=== PATIENT | female | born 1970 | race Caucasian/White ===

== ENCOUNTER 2016-05-02 04:51 | Observation (INO) | payer OTHER ==
[~2016-05-02] VITALS: Ht 154.9 cm; Wt 74.8 kg
[~2016-05-02 04:51] MED LIST: BCP PO; LORATADINE10 MG PO
--- NOTE | 2016-05-02 06:23 | DIAGNOSTIC IMAGING REPORT ---
PROCEDURE: XR LUMBAR SPINE 2 OR 3 VIEWS INDICATION: TRAUMA/INJURY TECHNIQUE: Three views. COMPARISON: None. FINDINGS: There is moderate to severe disc space narrowing L5-S1 with moderate degenerate changes of the lower lumbar facet joints. Osseous structures and disc spaces are otherwise normal. No evidence of an acute process or fracture. IMPRESSION: 1. Moderate degenerative changes of the lower lumbar spine (L5-S1 level).
--- NOTE | 2016-05-02 06:56 | DIAGNOSTIC IMAGING REPORT ---
PROCEDURE: XR CHEST 2 VIEW INDICATION: CHEST PAIN TECHNIQUE: PA and lateral views. COMPARISON: None. FINDINGS: Lungs are clear. Heart and mediastinum are normal. Thorax is normal. IMPRESSION: 1. Negative chest. 2. Findings discussed with Dr. Laguna.
--- NOTE | 2016-05-02 06:59 | DIAGNOSTIC IMAGING REPORT ---
PROCEDURE: XR HIP 2VW W W/O AP PELVIS-LT INDICATION: TRAUMA/INJURY TECHNIQUE: AP view of the pelvis and hips with lateral view of the left hip. COMPARISON: None. FINDINGS: LEFT HIP: Osseous structures and joint spaces are normal. PELVIS: Osseous pelvis is normal. IMPRESSION: 1. Negative pelvis and left hip. 2. Findings discussed with Dr. Laguna.
--- NOTE | 2016-05-02 07:43 | ED ORDER SUMMARY ---
..... Patient: ALFONSO GUDINO OrderSheet [facility] VisitID: [id number] [address] [place] [address] 46y, F Registration Date/Time: 05/02/2016 ORDER SHEET Weight: 74.8 kg (stated) Allergies: No Known Drug Allergy GENERAL ORDERS: Hip 2V Right w AP Pelvis (slip and fall in shower) Urgent (04:54 05/02/2016 PHutchinson DO) (Ack 5:06 CHategekimana) (Cancelled: Other5:16 PHutchinson DO) Lumbar Spine 2 or 3V Urgent (04:59 05/02/2016 PHutchinson DO) (Ack 5:06 Raminegekimana) (5:16 JBullard R.N.) Hip 2V Left w AP Pelvis Urgent (05:16 05/02/2016 PHutchinson DO) (5:16 JBullard R.N.) Chest 2V (fall with posterior left lower rib tenderness) Urgent (06:21 05/02/2016 PHutchinson DO) (Ack 6:25 Tripekimana) (6:55 Yael) CBC w Diff Urgent (07:21 05/02/2016 PHutchinson DO) (Ack 7:32 LNations ER Tech1) (8:11 JSanders R.N.) BMP Urgent (07:21 05/02/2016 PHutchinson DO) (Ack 7:32 LNations ER Tech1) (8:11 JSanders R.N.) UA-Culture if indicated Urgent (07:21 05/02/2016 PHutchinson DO) (Ack 7:32 LNations ER Tech1) Urine Drug Screen Urgent (07:21 05/02/2016 PHutchinson DO) (Ack 7:40 LNations ER Tech1) Urine Urgent (07:22 05/02/2016 PHutchinson DO) (Ack 7:40 LNations ER Tech1) Call (Place call to): (Dr Soler) (07:39 05/02/2016 PHutchinson DO) (Ack 7:40 LNations ER Tech1) (7:40 LNations ER Tech1) MEDICATION ORDERS: Dilaud[facility] IM 1 mg (NOW) [facility]04[facility]59 [facility] (5:16 Marialuisa RibeiroNAmmy) Phenergan IM 25 mg (NOW) (04:59 05/02/2016 [facility]) (5:16 Marialuisa Odonnell.NAmmy) IV FLUIDS: Dilaudid IV 0.5 mg (may repeat x 1 prn pain) (07:20 05/02/2016 [facility]) (7:59 Cynthia R.N.) IV NS : initial bolus 1000 mL (1000 mL/hr), then 150 mL/hr (NOW) (08:00 05/02/2016 [facility]) (8:11 Cynthia R.N.) ORDER SHEET NOTES: [Electronically signed by Nilesh Laguna DO (09:45 05/02/2016)] [Electronically signed by Rhina Porter R.N. (12:00 05/02/2016)] [Electronically locked/signed by Rhina Porter R.N. (12:00 05/02/2016)]
--- NOTE | 2016-05-02 07:43 | ED ORDER SUMMARY ---
..... Patient: ALFONSO GUDINO OrderSheet [facility] VisitID: [id number] [address] [place] [address] 46y, F Registration Date/Time: 05/02/2016 ORDER SHEET Weight: 74.8 kg (stated) Allergies: No Known Drug Allergy GENERAL ORDERS: Hip 2V Right w AP Pelvis (slip and fall in shower) Urgent (04:54 05/02/2016 PHutchinson DO) (Ack 5:06 CHategekimana) (Cancelled: Other5:16 PHutchinson DO) Lumbar Spine 2 or 3V Urgent (04:59 05/02/2016 PHutchinson DO) (Ack 5:06 Raminegekimana) (5:16 JBullard R.N.) Hip 2V Left w AP Pelvis Urgent (05:16 05/02/2016 PHutchinson DO) (5:16 JBullard R.N.) Chest 2V (fall with posterior left lower rib tenderness) Urgent (06:21 05/02/2016 PHutchinson DO) (Ack 6:25 Tripekimana) (6:55 Yael) CBC w Diff Urgent (07:21 05/02/2016 PHutchinson DO) (Ack 7:32 LNations ER Tech1) (8:11 JSanders R.N.) BMP Urgent (07:21 05/02/2016 PHutchinson DO) (Ack 7:32 LNations ER Tech1) (8:11 JSanders R.N.) UA-Culture if indicated Urgent (07:21 05/02/2016 PHutchinson DO) (Ack 7:32 LNations ER Tech1) Urine Drug Screen Urgent (07:21 05/02/2016 PHutchinson DO) (Ack 7:40 LNations ER Tech1) Urine Urgent (07:22 05/02/2016 PHutchinson DO) (Ack 7:40 LNations ER Tech1) Call (Place call to): (Dr Soler) (07:39 05/02/2016 PHutchinson DO) (Ack 7:40 LNations ER Tech1) (7:40 LNations ER Tech1) MEDICATION ORDERS: Dilaud[facility] IM 1 mg (NOW) [facility]04[facility]59 [facility] (5:16 Marialuisa RibeiroNAmmy) Phenergan IM 25 mg (NOW) (04:59 05/02/2016 [facility]) (5:16 Marialuisa Odonnell.NAmmy) IV FLUIDS: Dilaudid IV 0.5 mg (may repeat x 1 prn pain) (07:20 05/02/2016 [facility]) (7:59 Cynthia R.N.) IV NS : initial bolus 1000 mL (1000 mL/hr), then 150 mL/hr (NOW) (08:00 05/02/2016 [facility]) (8:11 Cynthia R.N.) ORDER SHEET NOTES: [Electronically signed by Nilesh Laguna DO (09:45 05/02/2016)] [Electronically signed by Rhina Porter R.N. (12:00 05/02/2016)] [Electronically locked/signed by Rhina Porter R.N. (12:00 05/02/2016)]
--- NOTE | 2016-05-02 07:43 | ED CLINICAL REPORT ---
Clinical Report - Physicians/Mid Levels [facility] [address] [place] [address] 05/02/2016 4:52 Patient: ALFONSO GUDINO Time Seen: 04:54. Arrived- By ambulance. Historian- patient and EMS personnel. HISTORY OF PRESENT ILLNESS The patient also has injury to right lower extremity (hip). Chief Complaint: RIGHT HIP INJURY. The injury occurred just prior to arrival. Occurred at home. Fell while standing and landed on the ground; slipped (fell onto her left side - not directly onto her gluteal area). The patient complains of moderate pain. No blow to the head, neck pain, loss of consciousness or seizure. REVIEW OF SYSTEMS No numbness, hearing loss, headache, chest pain or weakness. No abdominal pain, nausea, difficulty breathing, bladder dysfunction or laceration. No fever or vomiting. All systems otherwise negative, except as recorded above. PAST HISTORY PROBLEMS: Hives. SURGERIES: Foot surgery. SOCIAL HISTORY Never smoker. Occasional alcohol use. No drug use. ADDITIONAL NOTES The nursing notes have been reviewed. PHYSICAL EXAM Vital Signs: 05/02/2016 05:01 BP: 129/87. HR: 90. RR: 16. O2 saturation: 99%. Temp: 98 F. Appearance: Alert. Oriented X3. Patient in moderate distress. Head: Head non-tender. No swelling of head. Eyes: Pupils equal, round and reactive to light. EOM intact. ENT: No dental injury. Pharynx normal. Neck: Painless ROM. Non-tender. CVS: Heart sounds normal. Pulses normal. Respiratory: Breath sounds normal. Chest nontender. Abdomen: No visible injury. Soft and nontender. Back: Moderate soft-tissue tenderness in the left lower lumbar area. Skin: Skin intact. Skin warm and dry. Normal skin color. Normal skin turgor. Extremities: Normal inspection. Pelvis stable. Pelvis: moderate tenderness located in the left iliac wing and ischium. Limited ROM left hip secondary to pain. Neurovascular intact distally. No swelling. No ecchymosis. Left hip. No tenderness. Neuro: Derrick Coma Scale: 15- eyes open spontaneously (4); best verbal response- oriented x 3 (5); best motor response- obeys commands (6). Oriented X 3. No motor deficit. No sensory deficit. LABS, X-RAYS, AND EKG LS-Spine X-rays: No fracture or subluxation. (IMPRESSION: 1. Moderate degenerative changes of the lower lumbar spine (L5-S1 level).). Views: AP and lateral. Technique: good. The X-rays were interpreted contemporaneously by me and discussed with the radiologist. Chest X-ray: No acute disease. Normal lung markings present. Normal heart size. Mediastinum normal. Great vessels normal. No infiltrate. Views: PA and lateral. Technique: good. The X-rays were interpreted contemporaneously by me and discussed with the radiologist. Rt Hip X-ray: No fracture. Normal alignment. No bony lesion, air in the soft tissue or foreign body. Soft tissues normal. Joint spaces normal. Views: 2 view hip series. Technique: good. The X-rays were interpreted contemporaneously by me. Laboratory Tests: CBC w Diff: (PATTY: 05/02/2016 07:55) ( MarketLivegRcvd 05/02/2016 08:04) Final results Test Result Flag Units (Reference) WHITE BLOOD COUNT 10.7 K/uL (4.5-11.5) RED BLOOD COUNT 4.29 M/uL (4.00-5.20) HEMOGLOBIN 13.6 gm/dL (12.0-16.0) HEMATOCRIT 40.7 % (36.0-46.0) MEAN CELL VOLUME 95 fL (80-100) MEAN CORPUSCULAR HGB 32 pg (26-34) MEAN CORPUSCULAR HGB CONC 33 g/dL (31-37) RED CELL DISTRIBUTION WIDTH 12.5 % (11.6-14.8) PLATELET COUNT 351 K/uL (150-400) NEUTROPHIL % 82.7 H % (50-75) LYMPH % 13.9 L % (25-40) MONO % 3.4 % (3-14) EOSINOPHIL % 0 % (0-4) BASOPHIL % 0 % (0-2) BMP: (PATTY: 05/02/2016 07:55) ( MsgRcvd 05/02/2016 08:28) Final results Test Result Flag Units (Reference) GLUCOSE 113 H mg/dL (70-110) BUN 8 mg/dL (7-18) CREATININE 0.7 mg/dL (0.6-1.3) Estimated GFR >60 mL/min Estimated GFR- >60 mL/min Note: Persistent reduction over 3 months in eGFR<60 mL/min/1.73 m2 defines CKD. Patients with eGFR values>=60 mL/min/1.73 m2 may also have CKD if evidence ofpersistent proteinuria. Additional information may be foundat www.kidney.org. SODIUM 138 mmol/L (136-145) POTASSIUM 4.0 mmol/L (3.5-5.1) CHLORIDE 103 mmol/L (98-107) CARBON DIOXIDE 23 mmol/L (21-32) CALCIUM 8.6 mg/dL (8.5-10.1) . Pulse Oximetry: 05/02/2016 05:01 O2 saturation: 99%. (FIO2 - room air). Interpretation: normal. PROGRESS AND PROCEDURES Course of Care: Dilaudid 1 mg with Phenergan 25 mg IM given. Dilaudid 0.5 mg IVP given. Patient is stable. Symptoms better. Pt states that she cannot sit up or walk. She will be admitted for symptom control and further work up as indicated. Discussed case with patient's primary care provider, (Karlene call returned 07:50). Reviewed test results. Agreed upon treatment plan. Health care provider will see patient in ED. Patient/family counseled. Observation orders written. Disposition: Observation in Acute Care. Condition: stable and improved. CLINICAL IMPRESSION Contusion to the lower back.No hematoma or skin abrasion. 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 No radiculopathy or neurological deficit. Fall on same level by slipping. INSTRUCTIONS Your Current Medications: CONTINUE TAKING THE FOLLOWING MEDICATIONS: Control Pills*. Follow-up with: Javier Soler MD, [facility], [phone], [facility], [address] [place] [address] [address], [address] Follow up tomorrow. (Electronically signed by Nilesh Laguna DO 05/02/2016 9:45)
--- NOTE | 2016-05-02 07:43 | ED CLINICAL REPORT ---
Clinical Report - Physicians/Mid Levels [facility] [address] [place] [address] 05/02/2016 4:52 Patient: ALFONSO GUDINO Time Seen: 04:54. Arrived- By ambulance. Historian- patient and EMS personnel. HISTORY OF PRESENT ILLNESS The patient also has injury to right lower extremity (hip). Chief Complaint: RIGHT HIP INJURY. The injury occurred just prior to arrival. Occurred at home. Fell while standing and landed on the ground; slipped (fell onto her left side - not directly onto her gluteal area). The patient complains of moderate pain. No blow to the head, neck pain, loss of consciousness or seizure. REVIEW OF SYSTEMS No numbness, hearing loss, headache, chest pain or weakness. No abdominal pain, nausea, difficulty breathing, bladder dysfunction or laceration. No fever or vomiting. All systems otherwise negative, except as recorded above. PAST HISTORY PROBLEMS: Hives. SURGERIES: Foot surgery. SOCIAL HISTORY Never smoker. Occasional alcohol use. No drug use. ADDITIONAL NOTES The nursing notes have been reviewed. PHYSICAL EXAM Vital Signs: 05/02/2016 05:01 BP: 129/87. HR: 90. RR: 16. O2 saturation: 99%. Temp: 98 F. Appearance: Alert. Oriented X3. Patient in moderate distress. Head: Head non-tender. No swelling of head. Eyes: Pupils equal, round and reactive to light. EOM intact. ENT: No dental injury. Pharynx normal. Neck: Painless ROM. Non-tender. CVS: Heart sounds normal. Pulses normal. Respiratory: Breath sounds normal. Chest nontender. Abdomen: No visible injury. Soft and nontender. Back: Moderate soft-tissue tenderness in the left lower lumbar area. Skin: Skin intact. Skin warm and dry. Normal skin color. Normal skin turgor. Extremities: Normal inspection. Pelvis stable. Pelvis: moderate tenderness located in the left iliac wing and ischium. Limited ROM left hip secondary to pain. Neurovascular intact distally. No swelling. No ecchymosis. Left hip. No tenderness. Neuro: Derrick Coma Scale: 15- eyes open spontaneously (4); best verbal response- oriented x 3 (5); best motor response- obeys commands (6). Oriented X 3. No motor deficit. No sensory deficit. LABS, X-RAYS, AND EKG LS-Spine X-rays: No fracture or subluxation. (IMPRESSION: 1. Moderate degenerative changes of the lower lumbar spine (L5-S1 level).). Views: AP and lateral. Technique: good. The X-rays were interpreted contemporaneously by me and discussed with the radiologist. Chest X-ray: No acute disease. Normal lung markings present. Normal heart size. Mediastinum normal. Great vessels normal. No infiltrate. Views: PA and lateral. Technique: good. The X-rays were interpreted contemporaneously by me and discussed with the radiologist. Rt Hip X-ray: No fracture. Normal alignment. No bony lesion, air in the soft tissue or foreign body. Soft tissues normal. Joint spaces normal. Views: 2 view hip series. Technique: good. The X-rays were interpreted contemporaneously by me. Laboratory Tests: CBC w Diff: (PATTY: 05/02/2016 07:55) ( NotegRcvd 05/02/2016 08:04) Final results Test Result Flag Units (Reference) WHITE BLOOD COUNT 10.7 K/uL (4.5-11.5) RED BLOOD COUNT 4.29 M/uL (4.00-5.20) HEMOGLOBIN 13.6 gm/dL (12.0-16.0) HEMATOCRIT 40.7 % (36.0-46.0) MEAN CELL VOLUME 95 fL (80-100) MEAN CORPUSCULAR HGB 32 pg (26-34) MEAN CORPUSCULAR HGB CONC 33 g/dL (31-37) RED CELL DISTRIBUTION WIDTH 12.5 % (11.6-14.8) PLATELET COUNT 351 K/uL (150-400) NEUTROPHIL % 82.7 H % (50-75) LYMPH % 13.9 L % (25-40) MONO % 3.4 % (3-14) EOSINOPHIL % 0 % (0-4) BASOPHIL % 0 % (0-2) BMP: (PATTY: 05/02/2016 07:55) ( MsgRcvd 05/02/2016 08:28) Final results Test Result Flag Units (Reference) GLUCOSE 113 H mg/dL (70-110) BUN 8 mg/dL (7-18) CREATININE 0.7 mg/dL (0.6-1.3) Estimated GFR >60 mL/min Estimated GFR- >60 mL/min Note: Persistent reduction over 3 months in eGFR<60 mL/min/1.73 m2 defines CKD. Patients with eGFR values>=60 mL/min/1.73 m2 may also have CKD if evidence ofpersistent proteinuria. Additional information may be foundat www.kidney.org. SODIUM 138 mmol/L (136-145) POTASSIUM 4.0 mmol/L (3.5-5.1) CHLORIDE 103 mmol/L (98-107) CARBON DIOXIDE 23 mmol/L (21-32) CALCIUM 8.6 mg/dL (8.5-10.1) . Pulse Oximetry: 05/02/2016 05:01 O2 saturation: 99%. (FIO2 - room air). Interpretation: normal. PROGRESS AND PROCEDURES Course of Care: Dilaudid 1 mg with Phenergan 25 mg IM given. Dilaudid 0.5 mg IVP given. Patient is stable. Symptoms better. Pt states that she cannot sit up or walk. She will be admitted for symptom control and further work up as indicated. Discussed case with patient's primary care provider, (Karlene call returned 07:50). Reviewed test results. Agreed upon treatment plan. Health care provider will see patient in ED. Patient/family counseled. Observation orders written. Disposition: Observation in Acute Care. Condition: stable and improved. CLINICAL IMPRESSION Contusion to the lower back.No hematoma or skin abrasion. 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 No radiculopathy or neurological deficit. Fall on same level by slipping. INSTRUCTIONS Your Current Medications: CONTINUE TAKING THE FOLLOWING MEDICATIONS: Control Pills*. Follow-up with: Javier Soler MD, [facility][1], [phone], [facility], [address] [place] [address] [address], [address] Follow up tomorrow. (Electronically signed by Nilesh Laguna DO 05/02/2016 9:45)
--- NOTE | 2016-05-02 07:43 | ED NURSING NOTES ---
Clinical Report - Nurses [place] [address] [place] [address] 05/02/2016 4:52 Patient: ALFONSO GUDINO TRIAGE Triage time 0500. Chief Complaint: FALL (in bathroom). --05:06 Gerard Loaiza R.N. 05:01 05/02/16. BP: 129/87. HR: 90. RR: 16. O2 saturation: 99%. Temp: 98 F. Pain level now 04/23. --05:06 Gerard Loaiza R.N. Weight: 74.8 kg stated. Height/Length: 61 inches Per Patient. BMI: 31.2. --05:03 Gerard Loaiza R.N. Medications Control Pills. --05:02 Gerard Loaiza R.N. Allergies No Known Drug Allergy. --05:03 Gerard Loaiza R.N. History Arrived by EMS. Historian: patient. Unaccompanied. Location of injuries: left flank. This occurred just prior to arrival. ( denies hitting head, denies any injury other than left flank). Treatment PAPER COLORER: None. See EMS report. Trauma activation: Pre-hospital notification of patient arrival was received. PAST MEDICAL HX: Uses control pills. SOCIAL HX: Never smoker. Alcohol use; consumes beer weekly. No drug use. FALL RISK ASSESSMENT: Fall risk assessment completed. No fall risk identified. NUTRITIONAL RISK ASSESSMENT: The nutritional risk assessment revealed no deficiencies. FUNCTIONAL ASSESSMENT: Functional assessment: no impairments noted. LEARNING NEEDS ASSESSMENT: The learning needs assessment revealed no barriers. SKIN INTEGRITY ASSESSMENT: Skin integrity risk assessment completed. No skin integrity risk identified. --05:06 Gerard Loaiza R.N. PROBLEMS: Hives. --05:03 Gerard Loaiza R.N. ADDITIONAL SURGERIES: Foot surgery. --05:03 Gerard Loaiza R.N. Interventions ID band on patient. --05:06 Gerard Loaiza R.N. PHYSICAL ASSESSMENT To room via stretcher. GENERAL / NEURO / PSYCH: Alert. Oriented X 4. HEENT: Pupils equal, round and reactive to light. Head non-tender. CVS: Normal heart rate and rhythm. Pulses within normal limits. Capillary refill less than 2 seconds. GI / : Abdomen soft and nontender. EXTREMITIES: Extremities exhibit normal ROM. Neuro-vascular status intact to the extremity. Left hip: tenderness. SKIN: Skin intact. Skin is warm and dry. --05:06 Gerard Loaiza R.N. NURSING PROGRESS NOTES Reassurance given. Patient identifiers checked. Call light placed in reach. Bed placed in lowest position. Brakes of bed on. --05:07 Gerard Loaiza R.N. 05:16 05/02/2016 Phenergan (Promethazine HCl) IM 25 mg given. Given in the left deltoid. Allergies verified, confirmed 5 rights and sedative warning given to the patient. --05:16 Gerard Loaiza R.N. 05:16 05/02/2016 Dilaudid (HYDROmorphone HCl PF) IM 1 mg given. Given in the right deltoid. Allergies verified, confirmed 5 rights and sedative warning given to the patient. --05:16 Gerard Loaiza R.N. 07:06 05/02/16. Care transferred and report received (Gerard). --07:06 Rhina Porter R.N. 07:17 05/02/16. Two patient identifiers checked. Call light placed in reach. Side rails up x 2. Bed placed in lowest position. Brakes of bed on. Brakes of chair on. ( Introduced self to patient, patient isn't in too much pain unless she moves then the pain increases.). --07:18 Rhina Porter R.N. 07:13 05/02/16. BP: 132/71 (regular adult cuff) taken on the right arm, while lying. HR: 100. RR: 16. O2 saturation: 100% on room air. Temp: 97.8 F (oral). Pain level now: 2/10. Additional comments: Pain is a 2/10 just laying, she states it shoots up to a 10/10 with movement on left lower side of abdomen. --07:18 Rhina Porter R.N. 07:40 05/02/2016 Site #1 started via IV in the right antecubital space with an 20g angiocath, with aseptic technique and good blood return; one attempt. Saline lock flushed with 10 mL saline. --07:45 Rhina Porter R.N. ( H/p forms on chart). --07:51 Elsi Minaya ER Tech1 07:54 05/02/2016 Dilaudid (HYDROmorphone HCl PF) IVP 0.5 mg given over 1 minute(s) via site #1. Allergies verified, confirmed 5 rights and sedative warning given to the patient. IV patency established. IV site checked: no pain, redness, or swelling. IV flushed thoroughly pre- and post-medication administration. IVP given by RN. --07:59 Rhina Porter R.N. 08:11 05/02/2016 Started bag #1 1000 mL IV Fluids IV NS (Saline); at 1000 mL/hr over 1 hour(s) via site #1 via IV pump. Allergies verified and confirmed 5 rights. IV patency established. IV site checked: no pain, redness, or swelling. IV flushed thoroughly pre- and post-medication administration. --08:11 Rhina Porter R.N. 08:37 05/02/16. ( Report given to floor nurse Genevieve for transfer to inpatient). --08:37 Rhina Porter R.N. ( Overview faxed to 2nd floor.). --08:53 Elsi Minaya ER Tech1. DISPOSITION / DISCHARGE 09:49 05/02/16. Departure time: 09:45 May 02 2016. Condition at departure: unchanged. Admitted to Acute Care (09:45 May 02 2016). Transported via stretcher by tech with IV. Report was given to a nurse via a phone call. Report included patient's care, treatment, medications, reviewed medication reconcilliation, and condition (including any recent changes or anticipated changes). All questions were answered. Care was transferred. Bed obtained and ready. --09:49 Rhina Porter R.N. 09:45 05/02/16. BP: 127/91 (regular adult cuff) taken on the left arm, while lying. HR: 76. RR: 16 (regular). O2 saturation: 98% on room air. Temp: 98.1 F. Pain level now: 04/23. --09:49 Rhina Porter R.N. Locked/Released at 05/02/2016 12:00 by Rhina Porter R.N.
--- NOTE | 2016-05-02 08:39 | History & Physical Report ---
Information Source Information Source: Self Reliability: Good History Chief Complaint low back pain History of Present Illness Fell at home Patient History 1. Lumbar back sprain 2. Urticaria 3. Colon polyp 4. Diverticulosis Social History . + sig other. # grown childeren. No cigs or drugs. Occais Etoh Advance Directive None Health Maintenance Haqs had colonoscopy Medications and Allergies Medications BCP loratidine 10 mg/day Current Medications Sig/Moses Start time Last Medication Dose Route Stop Time Status Admin Diazepam 5 MG TID 05/02 1400 UNV PO Hydromorphone HCl 1 MG Q1H PRN 05/02 0915 UNV IV Ibuprofen 800 MG Q8H 05/02 0915 UNV PO Loratadine 10 MG DAILY 05/02 0911 UNV PO Acetaminophen 650 MG ONCE PRN 05/02 0845 AC PO 05/02 1200 Morphine Sulfate See Dose ONCE PRN 05/02 0845 UNi Insts (1) IV Ondansetron HCl 4 MG Q4H PRN 05/02 0845 UNV IV Sodium Chloride 1,000 ML ASDIRECTED 05/02 0845 UNV IV Dose Instructions: (1)Morphine Sulfate: 1-2 MG Allergies Coded Allergies: Beef Allergy (HIVES 02/27/16) Pork Allergy (HIVES 02/27/16) Rice (HIVES 02/27/16) Review of Systems Constitutional Denies: Fever, Chills, Sweats, Weakness, Malaise, Other. Eyes Denies: Pain, Vision Change, Conjunctival Inflammation, Eyelid Inflammation, Redness, Other. Musculoskeletal Back Pain (excruciating). Skin Other (hs chronic urticaria. none no). Neurological Denies: Weakness, Numbness, Incoordination, Change in speech, Confusion, Seizures, Other. Other FHx as per written admit note on chart Physical Exam General Appearance Alert, Oriented X3, Cooperative, Mild distress HEENT Normal exam, PERRLA, EOMI, Moist mucous membranes Lungs Normal exam, Clear to auscultation Breasts Symmetric Neck Supple, No JVD, No lymphadenopathy Cardiovascular Regular rate and rhythm, Normal S1 and S2, No murmurs, gallops, rubs Abdomen Normal exam Pelvic No tenderness Extremities No cyanosis, No clubbing, No edema Skin No Rashes, No Significant Lesions Neurological Normal tone, Sensation intact, Reflexes 2+ and equal, Cranial nerves intact, No lateralizing signs Psych/Mental Status Mental status normal, Mood normal Assessment and Plan Problem List 1. Lumbar back sprain Plan admit for pain contol. Ibuprofen, diaudid, valium. MRI considered tomorrow 2. Urticaria Plan chronic and controlled 3. Intractable back pain Plan admitted to Obs for pain and spasm control 4. Colon polyp 5. Diverticulosis E&M Codes Admission: Obsv-Comp/Moderate/[id number]
[2016-05-02 10:34] VITALS: BP 118/80
--- NOTE | 2016-05-02 12:00 | ED DISCHARGE INSTRUCTIONS ---
Patient: ALFONSO GUDINO General Instructions [facility] VisitID: [id number] [address] [place] [address] 46y, F Registration Date/Time: 05/02/2016 Contusion to the lower back.No hematoma or skin abrasion. 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 No radiculopathy or neurological deficit. Fall on same level by slipping. INSTRUCTIONS Your Current Medications: CONTINUE TAKING THE FOLLOWING MEDICATIONS: Control Pills*. Follow-up with: Javier Soler MD, [facility], [phone], [facility], [address] [facility] [address], [place], [address] Follow up tomorrow. ADDITIONAL INFORMATION Contusion, Back You have a CONTUSION of the back. This is a bruise with swelling and some bleeding under the skin. There are no broken bones. This injury takes a few days to a few weeks to heal. It is normal to feel muscle stiffness and aching in the area of injury the next day. Home Care: 1) Rest and relax your back muscles until you are feeling better. 2) Apply an ice pack (crushed or cubed ice in a plastic bag, wrapped in a towel) for 20 minutes every 2-4 hours during the first two days after a new injury. Local heat (hot shower, hot bath or heating pad) and massage will help reduce muscle spasm . Some patients feel best alternating treatments. Use the method that feels best to you for. 3) You may use acetaminophen (Tylenol) or ibuprofen (Motrin, Advil) to control pain, unless another pain medicine was prescribed. [ NOTE : If you have chronic liver or kidney disease or ever had a stomach ulcer or GI bleeding, talk with your doctor before using these medicines.] Follow Up with your doctor or this facility if your symptoms do not start to improve after three days. [NOTE: If X-rays were taken, they will be reviewed by a radiologist. You will be notified of any new findings that may affect your care.] Get Prompt Medical Attention if any of the following occur: -- Pain becomes worse or spreads to one or both legs -- Weakness or numbness in one or both legs -- Loss of bowel or bladder control -- Numbness in the groin or genital area -- Redness, warmth or drainage from the skin You have been given the following additional information: Contusion, Back (Electronically signed by Nilesh Laguna DO 05/02/2016 9:45)
--- NOTE | 2016-05-02 12:00 | ED MAR SUMMARY ---
..... Medication Administration Record [facility] [address] [place] [address] Patient: ALFONSO GUDINO Visit ID: [id number] 46y, F Weight: 74.8 kg Height/Length: 61 in BMI: 31.2 ALLERGIES: No Known Drug Allergy Given 05:16 05/02/2016 Gerard Laoiza R.N. Medication Administered: DILAUDID [IM] (HYDROMORPHONE HCL PF), Dose: 1 mg IM. Medication Ordered: Dilaudid IM 1 mg (NOW). Given 05:16 05/02/2016 Gerard Loaiza R.N. Medication Administered: PHENERGAN [IM] (PROMETHAZINE HCL), Dose: 25 mg IM. Medication Ordered: Phenergan IM 25 mg (NOW). Given 07:54 05/02/2016 Rhina Porter R.N. Medication Administered: DILAUDID [IVP] (HYDROMORPHONE HCL PF), Dose: 0.5 mg IVP over 1 minute(s), Site: #1 right AC. Medication Ordered: Dilaudid IV 0.5 mg (may repeat x 1 prn pain). Start 08:11 05/02/2016 Rhina Porter R.N. Medication Administered: IV NS (SALINE), Dose: IV Fluids over 1 hour(s), Rate: 1000 mL/hr, Dispensed: 1000 mL bag, Site: #1 right AC. Medication Ordered: IV NS : initial bolus 1000 mL (1000 mL/hr), then 150 mL/hr (NOW).
--- NOTE | 2016-05-02 12:00 | ED MAR SUMMARY ---
..... Medication Administration Record [facility] [address] [place] [address] Patient: ALFONSO GUDINO Visit ID: [id number] 46y, F Weight: 74.8 kg Height/Length: 61 in BMI: 31.2 ALLERGIES: No Known Drug Allergy Given 05:16 05/02/2016 Gerard Loaiza R.N. Medication Administered: DILAUDID [IM] (HYDROMORPHONE HCL PF), Dose: 1 mg IM. Medication Ordered: Dilaudid IM 1 mg (NOW). Given 05:16 05/02/2016 Gerard Loaiza R.N. Medication Administered: PHENERGAN [IM] (PROMETHAZINE HCL), Dose: 25 mg IM. Medication Ordered: Phenergan IM 25 mg (NOW). Given 07:54 05/02/2016 Rhina Porter R.N. Medication Administered: DILAUDID [IVP] (HYDROMORPHONE HCL PF), Dose: 0.5 mg IVP over 1 minute(s), Site: #1 right AC. Medication Ordered: Dilaudid IV 0.5 mg (may repeat x 1 prn pain). Start 08:11 05/02/2016 Rhina Porter R.N. Medication Administered: IV NS (SALINE), Dose: IV Fluids over 1 hour(s), Rate: 1000 mL/hr, Dispensed: 1000 mL bag, Site: #1 right AC. Medication Ordered: IV NS : initial bolus 1000 mL (1000 mL/hr), then 150 mL/hr (NOW).
--- NOTE | 2016-05-02 12:00 | ED MED RECONCILIATION SUMMARY ---
Patient: ALFONSO GUDINO Medication Reconciliation Report [facility] VisitID: [id number] [address] [place] [address] 46y, F Registration Date/Time: 05/02/2016 Weight: 74.8 kg Height/Length: 61 in. BMI: 31.2 ALLERGIES: No Known Drug Allergy The patient's Home Medications are listed below: CONTINUE TAKING THE FOLLOWING MEDICATIONS: Control Pills The source(s) of the original Home Medication information: Not obtained. The following Medications were given to the patient in the Emergency Department: Phenergan [IM] IM 25 mg, administered: 05/02/2016 5:16:00 AM Dilaudid [IM] IM 1 mg, administered: 05/02/2016 5:16:00 AM Dilaudid [IVP] IVP 0.5 mg, administered: 05/02/2016 7:54:00 AM IV NS IV Fluids bolus 0, then 1000 mL/hr, administered: 05/02/2016 8:11:00 AM The following Medications were prescribed to the patient: None.
--- NOTE | 2016-05-02 12:00 | ED DISCHARGE INSTRUCTIONS ---
Patient: ALFONSO GUDINO General Instructions [facility] VisitID: [id number] [address] [place] [address] 46y, F Registration Date/Time: 05/02/2016 Contusion to the lower back.No hematoma or skin abrasion. 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 No radiculopathy or neurological deficit. Fall on same level by slipping. INSTRUCTIONS Your Current Medications: CONTINUE TAKING THE FOLLOWING MEDICATIONS: Control Pills*. Follow-up with: Javier Soler MD, [facility], [phone], [facility], [address] [facility].. [address], [place], [address] Follow up tomorrow. ADDITIONAL INFORMATION Contusion, Back You have a CONTUSION of the back. This is a bruise with swelling and some bleeding under the skin. There are no broken bones. This injury takes a few days to a few weeks to heal. It is normal to feel muscle stiffness and aching in the area of injury the next day. Home Care: 1) Rest and relax your back muscles until you are feeling better. 2) Apply an ice pack (crushed or cubed ice in a plastic bag, wrapped in a towel) for 20 minutes every 2-4 hours during the first two days after a new injury. Local heat (hot shower, hot bath or heating pad) and massage will help reduce muscle spasm . Some patients feel best alternating treatments. Use the method that feels best to you for. 3) You may use acetaminophen (Tylenol) or ibuprofen (Motrin, Advil) to control pain, unless another pain medicine was prescribed. [ NOTE : If you have chronic liver or kidney disease or ever had a stomach ulcer or GI bleeding, talk with your doctor before using these medicines.] Follow Up with your doctor or this facility if your symptoms do not start to improve after three days. [NOTE: If X-rays were taken, they will be reviewed by a radiologist. You will be notified of any new findings that may affect your care.] Get Prompt Medical Attention if any of the following occur: -- Pain becomes worse or spreads to one or both legs -- Weakness or numbness in one or both legs -- Loss of bowel or bladder control -- Numbness in the groin or genital area -- Redness, warmth or drainage from the skin You have been given the following additional information: Contusion, Back (Electronically signed by Nilesh Laguna DO 05/02/2016 9:45)
--- NOTE | 2016-05-02 12:00 | ED MED RECONCILIATION SUMMARY ---
Patient: ALFONSO GUDINO Medication Reconciliation Report [facility] VisitID: [id number] [address] [place] [address] 46y, F Registration Date/Time: 05/02/2016 Weight: 74.8 kg Height/Length: 61 in. BMI: 31.2 ALLERGIES: No Known Drug Allergy The patient's Home Medications are listed below: CONTINUE TAKING THE FOLLOWING MEDICATIONS: Control Pills The source(s) of the original Home Medication information: Not obtained. The following Medications were given to the patient in the Emergency Department: Phenergan [IM] IM 25 mg, administered: 05/02/2016 5:16:00 AM Dilaudid [IM] IM 1 mg, administered: 05/02/2016 5:16:00 AM Dilaudid [IVP] IVP 0.5 mg, administered: 05/02/2016 7:54:00 AM IV NS IV Fluids bolus 0, then 1000 mL/hr, administered: 05/02/2016 8:11:00 AM The following Medications were prescribed to the patient: None.
[2016-05-02 14:25] VITALS: BP 108/69
[2016-05-02 18:05] VITALS: BP 113/72
[2016-05-02 22:19] VITALS: BP 105/74
[2016-05-03 02:19] VITALS: BP 109/68
[2016-05-03 06:32] VITALS: BP 104/73
--- NOTE | 2016-05-03 08:01 | Progress Note ---
Subjective General Continued pain in left low back. No radiation. No paresthesia or paralysis. No bowel or bladder sx's. Constitutional Denies: Fever, Chills, Sweats, Weakness, Malaise. Eyes Denies: Pain, Vision Change, Conjunctival Inflammation, Eyelid Inflammation, Redness, Other. Respiratory Denies: Cough, Dry, SOB w/exertion, Wheezing, Hemoptysis, Pleuritic Pain, Sputum , Other. Cardiovascular Denies: Chest Pain, Palpitations, Orthopnea, PND, Edema, Light-headedness, Other. Gastrointestinal Constipation (x1day). Denies: Nausea, Vomiting, Abdominal Pain, Diarrhea, Melena, Hematochezia. Genitourinary Denies: Dysuria, Frequency, Incontinence, Hematuria, Retention. Musculoskeletal Back Pain. Denies: Neck Pain, Shoulder Pain, Arm Pain, Hand Pain, Leg Pain, Foot Pain. Physical Exam Vital Signs / I&Os Vital Signs Date Time Temp Pulse Resp B/P Pulse O2 O2 Flow FiO2 Ox Delivery Rate 05/03 0632 98.4 68 20 104/73 99 Room Air 0.0 05/03 0219 98.4 75 18 109/68 95 Room Air 0.0 05/02 2219 98.4 72 18 105/74 99 Room Air 05/02 1805 98.6 104 18 113/72 98 Room Air 05/02 1425 98.8 102 16 108/69 100 Room Air 05/02 1034 98.8 90 16 118/80 98 Room Air 0.0 I&O 05/02 0800 05/02 1600 05/03 0000 Intake Total 1724 Output Total 1000 400 Balance -1000 1324 General Appearance Alert, Oriented X3, Cooperative, No acute distress HEENT Atraumatic, PERRLA, EOMI, Moist mucous membranes Lungs Normal exam, Clear to auscultation Breasts Symmetric Cardiovascular Normal exam, Regular rate and rhythm, Normal S1 and S2, No murmurs, gallops, rubs Abdomen Soft, No tenderness, No guarding Extremities No cyanosis, No clubbing, Strength = upper ext's, Strength = lower ext's, tender L paraspinous muscles Neurological Normal gait (slow and guarded gait), Normal speech, Sensation intact, Reflexes 2+ and equal, No lateralizing signs, painful movement of back Psych/Mental Status Mental status normal LAB Results Laboratory Tests 05/02 05/02 1025 1025 Toxicology Urine Opiates Screen (NEGATIVE) POSITIVE Urine Methadone Screen (NEGATIVE) NEGATIVE Ur Barbiturates Screen (NEGATIVE) NEGATIVE U Amphetamin/Meth Scrn (NEGATIVE) NEGATIVE MDMA (Ecstasy) Screen (NEGATIVE) NEGATIVE U Benzodiazepines Scrn (NEGATIVE) NEGATIVE Urine Cocaine Screen (NEGATIVE) NEGATIVE U Cannabinoids Screen (NEGATIVE) NEGATIVE Urines Urine Color YELLOW Urine Appearance CLEAR Urine pH (5.0 - 8.0) 6.0 Ur Specific [place] (1.010 - 1.030) <= 1.005 Urine Protein (NEGATIVE) NEGATIVE Urine Ketones (NEGATIVE) TRACE Urine Blood (NEGATIVE) NEGATIVE Urine Nitrite (NEGATIVE) NEGATIVE Urine Bilirubin (NEGATIVE) NEGATIVE Urine Urobilinogen (0.2 - 1.0 EU/dL) 0.2 Ur Leukocyte Esterase (NEGATIVE) NEGATIVE Urine RBC (0 - 1 rbc/hpf) NONE SEEN Urine WBC (0 - 1 wbc/hpf) NONE SEEN Ur Epithelial Cells (0 - 5 EPI/hpf) RARE Urine Bacteria (NONE SEEN) TRACE (<1+) Urine Glucose (NEGATIVE) NEGATIVE Urine Test NEGATIVE Urine Comment CULT NOT INDICATED Assessment and Plan Problem List 1. Lumbar back sprain Plan Improved but still painful to touch and move. 2. Intractable back pain Plan Transition to oral meds today and d/c to home for recovery
[2016-05-03] MEDS ORDERED: CYCLOBENZAPRINE10 MG PO (08:22)
[2016-05-03] MEDS ORDERED: VICODIN EQUIVAL1 TAB PO (08:23)
[2016-05-03] MEDS ORDERED: IBUPROFEN400 MG PO (08:24)
--- NOTE | 2016-05-03 08:29 | Provider's Discharge Care Plan ---
Problem, Goal, Plan Problem List 1. Lumbar back sprain Goals: Increase independence, Prevent disease progress Instructions: Take meds as directed, use ice for 5 days then heat 2. Hyperlipidemia LDL goal <130 Goals: Improve nutrition status, Screening Instructions: Follow up as directed, have fasting lipids at clinic and consider statin use if diet and, exercise, and wt loss are not effective 3. Urticaria Goals: Prevent disease progress Instructions: Take meds as directed
== END 2016-05-03 10:10 | disposition home or self-care (01) ==
LOC: ED SRH 04:51 → TRANS SRH 07:53 → ACUTE2 SRH 09:50
PROVIDERS: ADMIT Emergency Medicine
DX: S33.5XXA Sprain of ligaments of lumbar spine, initial encounter (principal); W01.0XXA Fall on same level from slipping, tripping and stumbling without subsequent striking against object, initial encounter; Y93.9 Activity, unspecified; Y92.009 Unspecified place in unspecified non-institutional (private) residence as the place of occurrence of the external cause; Y99.8 Other external cause status; M47.897 Other spondylosis, lumbosacral region

== ENCOUNTER 2016-05-13 13:09 | Outpatient (CLI) | payer OTHER ==
[~2016-05-13 13:09] MED LIST changes: +CYCLOBENZAPRINE10 MG PO; +IBUPROFEN400 MG PO; +VICODIN EQUIVAL1 TAB PO
--- NOTE | 2016-05-13 13:51 | DIAGNOSTIC IMAGING REPORT ---
PROCEDURE: CT PELVIS WITHOUT CONTRAST INDICATION: INJURY OF LUMBAR SPINE,EVAL LT HIP/PELVIS FOR FX TECHNIQUE: Axial scans with coronal and sagittal re-formations. COMPARISON: Left hip x-ray 05/02/2016 FINDINGS: No evidence of a fracture or femoral acetabular impingement. Mild marginal spurring of the acetabula bilaterally. Hip joint spaces are maintained. Severe L5-S1 disc and vertebral degenerative changes with severe left foraminal stenosis. Normal appendix. Mild sigmoid diverticulosis. Uterus, adnexa and bladder are unremarkable. IMPRESSION: 1. No fracture 2. Mild bilateral hip degenerative changes 3. Severe L5-S1 degenerative changes with severe left foraminal stenosis
== END 2016-05-13 23:00 ==
LOC: CT SRH 13:09
DX: M47.817 Spondylosis without myelopathy or radiculopathy, lumbosacral region (principal)